=== PATIENT | female | born 1970 | race Caucasian/White ===

== ENCOUNTER 2016-11-18 14:25 | Emergency (ER) | payer MEDICARE, MEDICAID ==
[~2016-11-18] VITALS: Ht 165.1 cm; Wt 77.1 kg
[~2016-11-18 14:25] MED LIST: ABILIFY2 MG PO; ASPIRIN ADULT L81 M3 PO; ATORVASTATIN CA20 M1 PO; B12 INJ.,1000 MCG/M IM; BACTRIM DS 8001 TA1 PO; BACTRIM DS 8001 TAB PO; BENTYL10 MG PO; BISOPROLOL FM5 MG PO; BUPROPION HCL75 M1 PO; CELEXA 20MG TAB20 MG PO; CLONIDINE HYDR0.1 MG PO; DOXYCYCLINE HY100 M4 PO; ESTRADIOL0.5 MG PO; GEMFIBROZIL600 M1 PO; HYDROCHLOROTHIA25 M1 PO; HYDROCODONE 7.51 TAB PO; KEFLEX 500MG.500 MG PO; LAMICTAL100 MG PO; LISINOPRIL 10MG10 MG PO; METFORMIN ER500 M1 PO; METFORMIN1000 MG PO; NORCO 325 MG-51 TAB PO; OMEPRAZOLE MAGN20 MG PO; PREDNISONE20 MG PO; PREVACID 30MG C30 M1 PO; PROVENTIL0.09 MG/A1 IH; SEPTRA DS 800 M1 TAB PO; TESSALON PERLE100 M1 PO; TRAZODONE 50MG50 MG PO
--- NOTE | 2016-11-18 15:00 | Urgent Treatment Center Report ---
History of Present Issue Date/Time Seen by Provider 11/18/16 6639 Visit Reason Pt arrived:Walked Presenting Problem:PT C/O HEAD CONGESTION, YELLOW MUCOUS, AND COUGH X2 DAYS Location if Accident: Onset of symptoms date/time:/ or onset unknown for:MEDICAL HX UNKNOWN Have you (or family members/close friends) recently traveled outside the [place]? N If Yes, where/when: Have you had exposure to infectious disease within the past month? TB? Other? Specify: Patient states that she has been having sinus pain and pressure, sorethroat, head congestion and cough for 2 days now States that she has been laying around because she has not felt well States that her cough is productive sometimes and sometimes not. States that her nose has been draining yellow but now is a yellowish brown in color ALLERGIES Coded Allergies: codeine (I-HIVES 09/05/16) Home Medications Active Scripts OMEPRAZOLE MAGNESIUM (Omeprazole Magnesium) 20 MG PO DAILY #30 E[facility] Ref 3 Prov: 10/22/13 Reported Medications Aspirin (Aspirin EC) 81 MG PO DAILY #30 TAB METFORMIN HCL (Metformin) 2,000 MG PO DAILY LISINOPRIL (Lisinopril) 20 MG PO DAILY TRAZODONE HCL (Trazodone HCl) 1-2 TAB PO QHS Estradiol 1 MG PO QHS Atorvastatin Calcium 20 MG PO QHS #30 Gemfibrozil 600 MG PO BID #60 Bisoprolol Fumarate 2.5 MG PO DAILY #30 HYDROCHLOROTHIAZIDE (Hydrochlorothiazide) 25 MG PO DAILY #30 BUPROPION HCL (Bupropion HCl 75MG) 150 MG PO QHS #30 History Medical History General CAD? No Angina: No [place]: No Hypertension? Yes Hyperlipidemia? Yes CHF? No DVT? No PE? No COPD? Yes Asthma? No Anemia? No GERD? Yes Gastric ulcers? No GI Bleed? No Hernia? No Thyroid Problems? No Hypothyroidism? No CVA? No Seizures? No Diabetes? Yes Insulin Dependent: No Insulin Pump: No Home FSBS? Yes Renal Insuffiency? No UTI? No Stones? No BPH? No GB Disease: Yes Nephritic Syndrome? No Asplenia? No Hepatitis? No Sickle Cell Disease? No Arthritis? No Migraines? No Cataracts? No Glaucoma? No MRSA? No HIV? No TB? No Anxiety? Yes Depression? No Cancer? No More? No Immunization HX DT/Tetanus 2012 Flu Flu Season Pneumonia Refuses Surgical Hx Previous Surgery?Y GALLBLADDER EGD HYSTERECTOMY PILONIDAL CYST COLONOSCOPY Tonsils BILAT CATARACTS Family History Family HX Diabetes Yes CAD Yes Hypertension Yes Hyperlipidemia Yes Cancer Yes TB No Social History Smoking Hx Smoker: Current Every Day Smoker Tobacco: Yes Type Cigarettes Packs/day 1 1/2 - 2 Packs Alcohol Alcohol: No Review of Systems All Other Systems Reviewed and Negative ENT ear pain, nose discharge, nose congestion, throat pain. Respiratory cough, wheezing Physical Exam Vital Signs Vital Signs Date Time Temp Pulse Resp B/P Pulse O2 O2 Flow FiO2 Ox Delivery Rate 11/18 1438 98.2 96 18 169/96 98 General Appearance Patient appears ill laying on exam table Ear, Nose, Throat sinus pain/drainage, nasal congestion, throat red, drainage noted yellowish brown in color, left ear red, TM buldging Respiratory Status Yes: trachea midline, chest symmetrical, non tender chest. No: respiratory distress. 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 No Results/Orders Current Medication Orders Sig/Linda Start time Last Medication Dose Route Stop Time Status Admin Lidocaine HCl 0 .STK-MED ONE 11/18 1518 DC .ROUTE Methylprednisolone 0 .STK-MED ONE 11/18 1518 DC Sodium Succinate .ROUTE Ceftriaxone Sodium 0 .STK-MED ONE 11/18 1517 DC .ROUTE Ceftriaxone Sodium 1 GM ONCE ONE 11/18 1515 DC 11/18 IM 11/18 1516 1522 Lidocaine HCl 0 ONCE ONE 11/18 1515 DC 11/18 IM 11/18 1516 1522 Methylprednisolone 125 MG ONCE ONE 11/18 1515 DC 11/18 Sodium Succinate IM 11/18 1516 1522 Departure Departure Time of Disposition 1507 Disposition DC Home or Self Care(routine) Clinical Impression Primary Impression: Upper respiratory infection Qualifiers: URI type: unspecified URI Qualified Code: J06.9 - Acute upper respiratory infection, unspecified Condition STABLE Referrals Rupal SIMMONS,Chay Negron (Family): 3 Days-Call Office if no improvement in symptoms Patient Instructions Cough, DI for Cough -- Adult, DI for Sinusitis, Sinus Headache, Sinusitis Additional Instructions * Monitor Temp. Tylenol and/or Ibuprofen as needed. ER if fever is no less than 101 despite alternating Tylenol and Ibuprofen * Encourage fluids, water, Gatorade, powerade, pedialyte if /toddler/or child * Warm salt water gargles for throat irritation *Warm fluids *Sore throat lozenges *Sleep elevated *humidifier or vaporizer *Flonase 2 sprays each nostril daily but may take 2-3 days to notice improvement with it *Bromfed may cause drowsiness. Know how it effect you or your child. Before driving, caring for small children or sending your child to school Follow up IMMEDIATELY for new or worsening of symptoms OR no noticeable improvement over the next 48-72 hours. 911 immediately for any life threatening symptoms such as chest pain or difficulty breathing Discharge Counseling Counseled pt/family regarding diagnosis, medications/RX, home care, follow up needs Prescriptions Current Visit Scripts Azithromycin (Zithromycin (Z-ALLY) 250MG Tab) 250 MG PO DAILY #6 TAB TAKE TWO (2) TABLETS ON DAY 1, THEN ONE (1) TABLET DAY #2 THRU #5 at 152
[2016-11-18] MEDS ORDERED: ZITHROMAX Z PA250 MG PO (15:10)
[2016-11-18 15:30] VITALS: BP 169/96
== END 2016-11-18 15:31 | disposition home or self-care (01) ==
LOC: UTC 14:25
DX: J06.9 Acute upper respiratory infection, unspecified (principal); F17.210 Nicotine dependence, cigarettes, uncomplicated; E11.9 Type 2 diabetes mellitus without complications; J44.9 Chronic obstructive pulmonary disease, unspecified; I10 Essential (primary) hypertension; E78.5 Hyperlipidemia, unspecified; F41.9 Anxiety disorder, unspecified; Z79.84 Long term (current) use of oral hypoglycemic drugs; Z79.890 Hormone replacement therapy; Z79.899 Other long term (current) drug therapy